=== PATIENT | female | born 1980 | race Caucasian/White ===

== ENCOUNTER 2017-05-14 11:05 | Emergency (ER) | payer OTHER ==
[~2017-05-14] VITALS: Ht 157.5 cm; Wt 56.8 kg
[2017-05-14 11:09] VITALS: BP 150/96; PULSE 98; RESP 14; TEMP 98.2; O2SAT 98
[2017-05-14 11:17] VITALS: BP 121/85; PULSE 88; RESP 16; TEMP 98.2; O2SAT 98
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
[2017-05-14] MEDS ORDERED: IBUP1TAB7 PO (12:29)
[2017-05-14] MEDS ORDERED: ROBA500T PO (12:29)
[2017-05-14] MEDS ORDERED: IBUPROFEN 800 MG TAB PO ONE (12:30)
[2017-05-14] MEDS ORDERED: METHOCARBAMOL 500 MG TAB PO ONE (12:30)
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
== END 2017-05-14 14:16 | disposition home or self-care (01) ==
LOC: NEPK 11:05
DX: M54.6 Pain in thoracic spine (principal); M54.41 Lumbago with sciatica, right side; V43.52XA Car driver injured in collision with other type car in traffic accident, initial encounter; Z79.899 Other long term (current) drug therapy; Z88.0 Allergy status to penicillin
CPT/HCPCS: 72072; 99283